=== PATIENT | female | born 1960 | race Caucasian/White ===

== ENCOUNTER 2021-08-31 14:42 | Outpatient (CLI) | payer BC | END 2021-08-31 14:43 | disposition home or self-care (01) | LOC: BICCT 14:42 | PROVIDERS: ATTEND Internal Medicine Cardiovascular Disease | DX: I65.21 Occlusion and stenosis of right carotid artery (principal); I67.1 Cerebral aneurysm, nonruptured | CPT/HCPCS: 70498 ==

== ENCOUNTER 2021-09-21 14:30 | Inpatient (IN) | payer BC ==
[2021-09-23] MEDS ORDERED: Protamine Sulfate 50 MG/5 ML VIAL ONE (09:06)
[2021-09-23] MEDS ORDERED: EPINEPHrine 1 MG/ML AMP ONE (09:06)
[2021-09-23] MEDS ORDERED: Dexamethasone 4 mg/ml Vial ONE (09:06)
[2021-09-23] MEDS ORDERED: Bupivacaine PF 0.5% 30 ML VIAL ONE (09:06)
[2021-09-23] MEDS ORDERED: Heparin 5,000 UNITS/ML VIAL ONE (09:06)
[2021-09-23] MEDS ORDERED: Midazolam HCl 2 mg/2 ml Vial ONE (09:17)
[2021-09-23] MEDS ORDERED: niCARdipine 25 MG/10 ML VIAL ONE (09:17)
[2021-09-23] MEDS ORDERED: fentaNYL Citrate/PF 100 MCG/2 ML SYRINGE ONE (09:17)
[2021-09-23] MEDS ORDERED: Phenylephrine 10 MG/ML VIAL ONE (09:17)
[2021-09-23] MEDS ORDERED: Lidocaine 1% MPF 2 ML VIAL ONE (10:06)
[2021-09-23] MEDS ORDERED: Sodium Chloride 0.9% 100 ML ONE (10:12)
[2021-09-23] MEDS ORDERED: CEFAZOLIN 2 GM VIAL ONE (10:12)
[2021-09-23] MEDS ORDERED: Ondansetron PF 4 MG/2 ML Vial ONE (10:37)
[2021-09-23] MEDS ORDERED: Dexamethasone 20 MG/5 ML VIAL ONE (10:37)
[2021-09-23] MEDS ORDERED: PROPOFOL 200 MG/20 ML VIAL ONE (10:37)
[2021-09-23] MEDS ORDERED: Ketorolac Tromethamine 30 MG/ML VIAL ONE (10:37)
[2021-09-23] MEDS ORDERED: Lidocaine 1% PF 5 ML VIAL ONE (10:37)
[2021-09-23] MEDS ORDERED: Rocuronium Bromide 10 MG/ML (10ML VIAL) ONE (10:37)
[2021-09-23] MEDS ORDERED: SUGAMMADEX SODIUM 200 MG/2 ML VIAL ONE (11:49)
[2021-09-23] MEDS ORDERED: PACU-Morphine 4MG/ML VIAL SLOW IVP PRN (12:22)
[2021-09-23] MEDS ORDERED: HYDROmorphone 2 MG/ML VIAL SLOW IVP PRN (12:22)
[2021-09-23] MEDS ORDERED: Promethazine HCl 25 MG/ML VIAL IM PRN (12:22)
[2021-09-23] MEDS ORDERED: Promethazine HCl 25 MG/ML VIAL IVPB PRN (12:22)
[2021-09-23] MEDS ORDERED: Ondansetron HCl/PF 4 MG/2 ML Vial IVP PRN (12:22)
[2021-09-23] MEDS ORDERED: Ondansetron PF 4 MG/2 ML Vial IVP PRN (14:06)
[2021-09-23] MEDS ORDERED: Nitroglycerin 50 MG/250 ML BOT 250 ML IVPB PRN (14:06)
[2021-09-23] MEDS ORDERED: traMADol HCl 50 MG TAB PO PRN ×2 (14:06)
[2021-09-23] MEDS ORDERED: Phenylephrine 40 MG in Sodium Chloride 0.9% 250 ML 250 ML IVPB PRN (14:06)
[2021-09-23] MEDS ORDERED: Fentanyl 100 MCG/2 ML VIAL SLOW IVP PRN ×2 (14:06)
[2021-09-23] MEDS ORDERED: Acetaminophen 325 MG TAB PO PRN (14:06)
[2021-09-23] MEDS ORDERED: hydrALAZINE 20 MG/ML VIAL SLOW IVP PRN (14:06)
[2021-09-23] MEDS ORDERED: Albuterol Sulfate 2.5 mg/3 ml Neb NEB PRN (14:27)
[2021-09-23] MEDS: Sodium Chloride 0.9% 1,000 ML IV SCH (14:30)
[2021-09-23 15:10] VITALS: BMI 47.2
[2021-09-23] MEDS: CEFAZOLIN 2 GM in Sodium Chloride 0.9% 100 ML IVPB SCH (17:34)
[2021-09-23] MEDS: Mometasone 200 MCG/Formoterol 5 MCG 120 PUFF INHALER INH SCH (18:45)
[2021-09-23 20:15] VITALS: BP 121/46
[2021-09-23] MEDS ORDERED: Atorvastatin Calcium 10 MG TAB PO SCH (21:00)
[2021-09-23] MEDS ORDERED: Lisinopril 10 MG TAB PO SCH (21:00)
[2021-09-23] MEDS ORDERED: Montelukast Sodium 10 mg Tablet PO SCH (21:00)
[2021-09-24] MEDS: Sodium Chloride 0.9% 1,000 ML IV SCH (00:32)
[2021-09-24] MEDS: CEFAZOLIN 2 GM in Sodium Chloride 0.9% 100 ML IVPB SCH ×2 (01:40→09:34)
[2021-09-24] MEDS: Mometasone 200 MCG/Formoterol 5 MCG 120 PUFF INHALER INH SCH (07:06)
[2021-09-24 07:44] VITALS: TEMP 97.5
[2021-09-24] MEDS ORDERED: Loratadine 10 MG TAB PO SCH (09:00)
[2021-09-24] MEDS ORDERED: Aspirin 81 mg Enteric Coated Tablet PO SCH (09:00)
[2021-09-24] MEDS ORDERED: Hydrochlorothiazide 25 MG TAB PO SCH (09:00)
[2021-09-24] MEDS ORDERED: Fluticasone Propionate Nasal Spray 16 gm Bottle NASAL SCH (09:00)
[2021-09-24] MEDS ORDERED: Clopidogrel Bisulfate 75 MG TAB PO SCH (09:00)
== END 2021-09-24 11:14 | disposition home or self-care (01) | DRG 35 ==
LOC: SURG A 09-23 08:52 → CCU 09-23 14:19
PROVIDERS: ADMIT Thoracic Surgery (Cardiothoracic Vascular Surgery); ATTEND Thoracic Surgery (Cardiothoracic Vascular Surgery)
PROC: 037L3DZ Dilation of Left Internal Carotid Artery with Intraluminal Device, Percutaneous Approach (ICD-10-PCS; principal; 2021-09-23)
DX: I65.23 Occlusion and stenosis of bilateral carotid arteries (principal); Z68.42 Body mass index [BMI] 45.0-49.9, adult; E78.2 Mixed hyperlipidemia; I10 Essential (primary) hypertension; E66.09 Other obesity due to excess calories; J45.909 Unspecified asthma, uncomplicated; Z20.822 Contact with and (suspected) exposure to COVID-19; Z90.49 Acquired absence of other specified parts of digestive tract; Z90.710 Acquired absence of both cervix and uterus; Z98.890 Other specified postprocedural states; Z82.49 Family history of ischemic heart disease and other diseases of the circulatory system; Z87.891 Personal history of nicotine dependence; Z88.5 Allergy status to narcotic agent; Z79.82 Long term (current) use of aspirin; Z79.899 Other long term (current) drug therapy
CPT/HCPCS: 76000; 80048; 85027; 94640; C1725; C1776; C1876; C1884; J0171; J1100; J1642; J1644; J1885; J2250; J2370; J2405; J2704; J2720; J3490; J7620; S0020; U0003; U0005

== ENCOUNTER 2021-09-21 14:45 | Outpatient (CLI) | payer BC ==
[2021-09-21 17:26] LABS: Hemoglobin 12.6 g/dL (12.0-15.5); Mean Corpuscular Hemoglobin 29.2 pg (27.0-33.0); Mean Corpuscular Volume 91.2 fl (81.6-98.3); Mean Platelet Volume 12.9 fl (7.4-10.4); Platelet Count 183 10x3/uL (150-450); RBC Distribution Width 13.3 % (11.5-14.5); Red Blood Cell (RBC) Count 4.32 10x6/uL (3.90-5.03); White Blood Cell (WBC) Count 9.2 10x3/uL (3.5-10.5)
[2021-09-21 17:38] LABS: Anion Gap 15 mmol/L (10-20); BUN (Urea Nitrogen) 12 mg/dL (9.8-20.1); Calc. Creatinine Clearance 0 mL/min (70-130); Calcium 10.1 mg/dL (7.8-10.44); Carbon Dioxide 28 mmol/L (23-31); Chloride 102 mmol/L (98-107); Glucose 87 mg/dL (80-115); Potassium 3.6 mmol/L (3.5-5.1)
[2021-09-21 18:08] LABS: Sodium 141 mmol/L (136-145)
== END 2021-09-21 14:46 | disposition home or self-care (01) ==
LOC: LABBT 14:45
PROVIDERS: ATTEND Thoracic Surgery (Cardiothoracic Vascular Surgery)
DX: Z01.812 Encounter for preprocedural laboratory examination (principal); I65.22 Occlusion and stenosis of left carotid artery; Z20.822 Contact with and (suspected) exposure to COVID-19
CPT/HCPCS: 80048; 85027; U0003; U0005

== ENCOUNTER 2024-02-24 08:06 | Outpatient (CLI) | payer MEDICARE | END 2024-02-24 08:07 | disposition home or self-care (01) | LOC: ULT 08:06 | PROVIDERS: ATTEND Internal Medicine Nephrology | DX: I12.9 Hypertensive chronic kidney disease with stage 1 through stage 4 chronic kidney disease, or unspecified chronic kidney disease (principal); N18.30 Chronic kidney disease, stage 3 unspecified; R94.4 Abnormal results of kidney function studies | CPT/HCPCS: 76770; 93975 ==

== ENCOUNTER 2025-03-01 11:06 | Outpatient (CLI) | payer MEDICARE | END 2025-03-01 11:07 | disposition home or self-care (01) | LOC: BICMAMMO 11:06 | PROVIDERS: ATTEND Physician Assistant | DX: Z12.31 Encounter for screening mammogram for malignant neoplasm of breast (principal); Z78.0 Asymptomatic menopausal state; Z80.3 Family history of malignant neoplasm of breast; M81.0 Age-related osteoporosis without current pathological fracture | CPT/HCPCS: 77063; 77067; 77080 ==